=== PATIENT | female | born 1990 | race African-American/Black ===

== ENCOUNTER 2019-06-27 09:54 | Emergency (ER) | payer MEDICAID, OTHER ==
[~2019-06-27] VITALS: Ht 160 cm; Wt 54.5 kg
[~2019-06-27 09:54] MED LIST: DOXY100C PO; METR500 PO
[2019-06-27 10:20] LABS: BASOPHILS % (AUTO) 1.2 % (0.0-2.0); EOSINOPHILS % (AUTO) 3.4 % (1.0-6.0); HEMATOCRIT 42.5 % (36-46); HEMOGLOBIN 13.7 g/dL (12.0-16.0); LYMPHOCYTES # (AUTO) 1.5 K/uL (1.0-4.8); LYMPHOCYTES % (AUTO) 36.1 % (22.0-44.0); MEAN CORPUSCULAR HEMOGLOBIN 29.1 pg (26.0-34.0); MEAN CORPUSCULAR HGB CONC 32.3 G/dL (31.0-37.0); MEAN CORPUSCULAR VOLUME 90 fL (80-100); MONOCYTES # (AUTO) 0.3 K/uL (0.1-1.0); MONOCYTES % (AUTO) 6.7 % (2.0-9.0); NEUTROPHILS # (AUTO) 2.2 K/uL (1.8-7.7); NEUTROPHILS % (AUTO) 52.6 % (40.0-70.0); PLATELET COUNT (AUTO) 285 K/uL (150-450); RED BLOOD CELL COUNT(AUTO) 4.72 MIL/uL (4.00-5.20); RED CELL DISTRIBUTION WIDTH 12.8 % (11.5-14.5)
[2019-06-27 10:30] LABS: ANION GAP 6 mmol/L (8-16); CARBON DIOXIDE 29 mmol/L (22-29); CHLORIDE 103 mmol/L (98-107); GLOMERULAR FILTR. RATE CALC > 60 mL/min (>60); GLUCOSE,RANDOM 80 mg/dL (70-110); POTASSIUM 3.5 mmol/L (3.5-5.1); SODIUM SERUM 138 mmol/L (136-145); UREA NITROGEN, BLOOD 9 mg/dL (7-18)
[2019-06-27 10:42] LABS: ALANINE AMINOTRANSFERASE 12 U/L (12-78); ALKALINE PHOSPHATASE 62 U/L (46-116); ASPARTATE AMINOTRANSFERASE 13 U/L (15-37); BILIRUBIN,TOTAL 0.5 mg/dL (0.1-1.0); HCG,QUANTITATIVE < 1 mIU/mL (0-6); LIPASE 107 U/L (73-393); TOTAL PROTEIN, SERUM 7.1 g/dL (6.4-8.2)
[2019-06-27] MEDS ORDERED: SODIUM CHLORIDE 0.9% 1,000 ML IV ONE ×2 (11:45→13:30)
[2019-06-27] MEDS ORDERED: KETOROLAC TROMETHAMINE 30 MG/ML VIAL IVP ONE (11:45)
[2019-06-27] MEDS ORDERED: METOCLOPRAMIDE HCL 5 MG/ML 2 ML VIAL IVP ONE (11:45)
[2019-06-27 13:46] LABS: APPEARANCE,URINE CLEAR (CLEAR); BILIRUBIN,URINE NEGATIVE (NEGATIVE); GLUCOSE, URINE (UA) NEGATIVE (NEGATIVE); KETONES,URINE 15 mg/dL (NEGATIVE); LEUKOCYTE ESTERASE ,URINE SMALL (NEGATIVE); NITRATE,URINE NEGATIVE (NEGATIVE); OCCULT BLOOD,URINE NEGATIVE (NEGATIVE); PH,URINE 5.5 (5.0-8.0); PROTEIN,URINE NEGATIVE (NEGATIVE); UROBILINOGEN,URINE 0.2 mg/dL (<=1.0)
[2019-06-27 13:57] LABS: RBC,URINE None Seen /HPF (0-2)
[2019-06-27 13:58] LABS: BACTERIA,URINE Few /HPF (None Seen); SQUAMOUS EPITHELIAL CELL,UR Few /LPF (None Seen)
[2019-06-27 16:33] VITALS: BP 97/63
== END 2019-06-27 16:40 | disposition home or self-care (01) ==
LOC: EMS 09:55
DX: G43.909 Migraine, unspecified, not intractable, without status migrainosus (principal); R10.30 Lower abdominal pain, unspecified; R11.0 Nausea; R42 Dizziness and giddiness; F17.210 Nicotine dependence, cigarettes, uncomplicated; Z88.0 Allergy status to penicillin
CPT/HCPCS: 36415; 71045; 80053; 81001; 83690; 84702; 85025; 87086; 96361; 96374; 96375; 99284; 99406; J1885; J2765; J7030

== ENCOUNTER 2021-10-16 10:01 | Emergency (ER) | payer OTHER ==
[~2021-10-16] VITALS: Ht 157.5 cm; Wt 51.0 kg
[2021-10-16] MEDS ORDERED: LIDOCAINE/PF 1% 2 ML VIAL IM ONE (12:45)
[2021-10-16] MEDS ORDERED: CefTRIAXone SODIUM 1 GM/VIAL IM ONE (12:45)
[2021-10-16 15:48] VITALS: BP 126/69
[2021-10-16 16:08] LABS: APPEARANCE,URINE CLEAR (CLEAR); BILIRUBIN,URINE NEGATIVE (NEGATIVE); GLUCOSE, URINE (UA) NEGATIVE (NEGATIVE); KETONES,URINE >=80 mg/dL (NEGATIVE); LEUKOCYTE ESTERASE ,URINE NEGATIVE (NEGATIVE); NITRATE,URINE NEGATIVE (NEGATIVE); OCCULT BLOOD,URINE NEGATIVE (NEGATIVE); PROTEIN,URINE NEGATIVE (NEGATIVE)
[2021-10-16 16:20] LABS: RBC,URINE None Seen /HPF (0-2); TRANSITIONAL EPI CELLS,URINE Few /LPF (None Seen); WBC,URINE 0-2 /HPF (0-5)
[2021-10-16 16:21] LABS: BACTERIA,URINE None Seen /HPF (None Seen)
== END 2021-10-16 16:58 | disposition home or self-care (01) ==
LOC: EMS 10:01
DX: N72 Inflammatory disease of cervix uteri (principal); F12.90 Cannabis use, unspecified, uncomplicated; F17.210 Nicotine dependence, cigarettes, uncomplicated; Z88.0 Allergy status to penicillin
CPT/HCPCS: 36415; 76856; 81001; 84702; 87210; 87491; 87591; 96372; 99285; J0696; J3490

== ENCOUNTER 2022-07-31 07:49 | Emergency (ER) | payer OTHER ==
[~2022-07-31] VITALS: Ht 157.5 cm; Wt 59.1 kg
[2022-07-31 07:52] VITALS: BP 116/77
[2022-07-31] MEDS ORDERED: PREN-18 PO (07:55)
[2022-07-31 08:13] LABS: BASOPHILS % (AUTO) 0.8 % (0.0-2.0); EOSINOPHILS % (AUTO) 0.8 % (1.0-6.0); HEMATOCRIT 38.3 % (36-46); HEMOGLOBIN 12.4 g/dL (12.0-16.0); LYMPHOCYTES # (AUTO) 1.3 K/uL (1.0-4.8); LYMPHOCYTES % (AUTO) 20.8 % (22.0-44.0); MEAN CORPUSCULAR HGB CONC 32.3 G/dL (31.0-37.0); MEAN CORPUSCULAR VOLUME 90 fL (80-100); MONOCYTES # (AUTO) 0.5 K/uL (0.1-1.0); MONOCYTES % (AUTO) 7.6 % (2.0-9.0); NEUTROPHILS # (AUTO) 4.3 K/uL (1.8-7.7); PLATELET COUNT (AUTO) 284 K/uL (150-450); RED BLOOD CELL COUNT(AUTO) 4.26 MIL/uL (4.00-5.20); RED CELL DISTRIBUTION WIDTH 13.1 % (11.5-14.5)
== END 2022-07-31 08:46 | disposition left against medical advice (07) ==
LOC: EMS 07:51
DX: Z53.21 Procedure and treatment not carried out due to patient leaving prior to being seen by health care provider (principal)
CPT/HCPCS: 84702; 85025; 86901

== ENCOUNTER 2024-05-18 07:35 | Emergency (ER) | payer OTHER ==
[~2024-05-18] VITALS: Ht 170.2 cm; Wt 61.8 kg
[~2024-05-18 07:35] MED LIST changes: -DOXY100C PO; -METR500 PO; +PREN-18 PO
[2024-05-18 07:40] VITALS: BP 105/49; PULSE 76; RESP 18; TEMP 98.4
[2024-05-18 08:06] LABS: BASOPHILS % (AUTO) 0.8 % (0.0-2.0); EOSINOPHILS % (AUTO) 1.1 % (1.0-6.0); HEMATOCRIT 36.9 % (36-46); HEMOGLOBIN 12.3 g/dL (12.0-16.0); LYMPHOCYTES # (AUTO) 1.5 K/uL (1.0-4.8); MEAN CORPUSCULAR HEMOGLOBIN 29.9 pg (26.0-34.0); MEAN CORPUSCULAR HGB CONC 33.4 G/dL (31.0-37.0); MEAN CORPUSCULAR VOLUME 89 fL (80-100); MONOCYTES # (AUTO) 0.4 K/uL (0.1-1.0); MONOCYTES % (AUTO) 6.7 % (2.0-9.0); NEUTROPHILS # (AUTO) 3.9 K/uL (1.8-7.7); NEUTROPHILS % (AUTO) 65.4 % (40.0-70.0); PLATELET COUNT (AUTO) 301 K/uL (150-450); RED BLOOD CELL COUNT(AUTO) 4.12 MIL/uL (4.00-5.20); RED CELL DISTRIBUTION WIDTH 13.3 % (11.5-14.5)
[2024-05-18 08:16] LABS: ANION GAP 6 mmol/L (8-16); CARBON DIOXIDE 27 mmol/L (22-29); CHLORIDE 101 mmol/L (98-107); CREATININE 0.55 mg/dL (0.60-1.30); GLOMERULAR FILTR. RATE CALC > 60 mL/min (>60); GLUCOSE,RANDOM 86 mg/dL (70-110); POTASSIUM 3.9 mmol/L (3.5-5.1); SODIUM SERUM 134 mmol/L (136-145); UREA NITROGEN, BLOOD 7 mg/dL (7-18)
[2024-05-18 08:53] LABS: HCG,QUANTITATIVE 59326 mIU/mL (0-6); LIPASE 31 U/L (16-77)
[2024-05-18 11:00] LABS: APPEARANCE,URINE TURBID (CLEAR); BILIRUBIN,URINE NEGATIVE (NEGATIVE); COLOR,URINE LIGHT YELLOW (YELLOW); GLUCOSE, URINE (UA) NEGATIVE (NEGATIVE); KETONES,URINE NEGATIVE (NEGATIVE); LEUKOCYTE ESTERASE ,URINE NEGATIVE (NEGATIVE); NITRATE,URINE NEGATIVE (NEGATIVE); OCCULT BLOOD,URINE NEGATIVE (NEGATIVE); PROTEIN,URINE NEGATIVE (NEGATIVE); SPECIFIC GRAVITIY, URINE 1.015 (1.003-1.030); UROBILINOGEN,URINE <=1.0 mg/dL (<=1.0)
== END 2024-05-18 13:32 | disposition home or self-care (01) ==
LOC: EMS 07:35
DX: O26.891 Other specified pregnancy related conditions, first trimester (principal); Z3A.11 11 weeks gestation of pregnancy; O99.331 Smoking (tobacco) complicating pregnancy, first trimester; F17.210 Nicotine dependence, cigarettes, uncomplicated; F12.90 Cannabis use, unspecified, uncomplicated; Z88.0 Allergy status to penicillin
CPT/HCPCS: 76801; 80048; 81003; 83690; 84702; 85025; 99284

== ENCOUNTER → 2024-07-14 | Emergency (ER) | payer OTHER ==
[~2024-07-14] VITALS: Ht 157.5 cm; Wt 61.4 kg
[~2024-07-14] MED LIST changes: +HYDR30CR3 TP; +POLY119P3 PO; -PREN-18 PO
[2024-07-14 11:33] VITALS: TEMP 98
[2024-07-14 12:20] LABS: BASOPHILS % (AUTO) 0.6 % (0.0-2.0); EOSINOPHILS % (AUTO) 0.8 % (1.0-6.0); HEMATOCRIT 40.5 % (36-46); HEMOGLOBIN 13.1 g/dL (12.0-16.0); LYMPHOCYTES # (AUTO) 1.6 K/uL (1.0-4.8); LYMPHOCYTES % (AUTO) 21.6 % (22.0-44.0); MEAN CORPUSCULAR HEMOGLOBIN 29.5 pg (26.0-34.0); MEAN CORPUSCULAR HGB CONC 32.4 G/dL (31.0-37.0); MEAN CORPUSCULAR VOLUME 91 fL (80-100); MONOCYTES # (AUTO) 0.4 K/uL (0.1-1.0); MONOCYTES % (AUTO) 5.5 % (2.0-9.0); NEUTROPHILS # (AUTO) 5.3 K/uL (1.8-7.7); NEUTROPHILS % (AUTO) 71.5 % (40.0-70.0); PLATELET COUNT (AUTO) 290 K/uL (150-450); RED BLOOD CELL COUNT(AUTO) 4.45 MIL/uL (4.00-5.20); RED CELL DISTRIBUTION WIDTH 13.6 % (11.5-14.5); WHITE BLOOD COUNT (AUTO) 7.4 K/uL (4.5-11.0)
[2024-07-14] MEDS: ONDANSETRON HCL 4 MG/2 ML VIAL IVP ONE (14:03)
[2024-07-14] MEDS: SODIUM CHLORIDE 0.9% 1,000 ML IV ONE (14:03)
[2024-07-14] MEDS: ACETAMINOPHEN 500 MG TABLET PO ONE (14:03)
[2024-07-14] MEDS: SODIUM PHOSPHATE,MONO-DIBASIC 133 ML ENEMA PR ONE (14:24)
[2024-07-14] MEDS: MAGNESIUM CITRATE [LEMON] 300 ML ORAL SOLUTION PO ONE (14:24)
[2024-07-14 15:06] LABS: ANION GAP 10 mmol/L (8-16); CALCIUM, TOTAL 8.1 mg/dL (8.8-10.5); CARBON DIOXIDE 25 mmol/L (22-29); CHLORIDE 99 mmol/L (98-107); CREATININE 0.55 mg/dL (0.60-1.30); GLOMERULAR FILTR. RATE CALC > 60 mL/min (>60); GLUCOSE,RANDOM 69 mg/dL (70-110); POTASSIUM 3.8 mmol/L (3.5-5.1); SODIUM SERUM 134 mmol/L (136-145); UREA NITROGEN, BLOOD 5 mg/dL (7-18)
[2024-07-14 18:00] VITALS: BP 119/64; PULSE 80; RESP 18; O2SAT 98
== END | disposition still patient (30) ==
LOC: EMS 11:13
DX: O22.42 Hemorrhoids in pregnancy, second trimester (principal); O21.0 Mild hyperemesis gravidarum; O99.332 Smoking (tobacco) complicating pregnancy, second trimester; F17.210 Nicotine dependence, cigarettes, uncomplicated; Z3A.21 21 weeks gestation of pregnancy; F12.90 Cannabis use, unspecified, uncomplicated; Z88.0 Allergy status to penicillin
CPT/HCPCS: 99285; 96374; 76801; 96361; 80048; 84702; 85025; 36415; J2405; J7030

== ENCOUNTER 2025-10-12 08:34 | Emergency (ER) | payer OTHER ==
[~2025-10-12] VITALS: Ht 157.5 cm; Wt 56.8 kg
[2025-10-12 08:39] VITALS: BP 133/82; PULSE 60; RESP 18; TEMP 97.9; O2SAT 100
[2025-10-12] MEDS: IBUPROFEN 200 MG TABLET PO ONE (09:40)
[2025-10-12] MEDS: GuaiFENesin/D-METHORPHAN [SUGAR-FREE] 200-20MG/10 ML SYRUP UDCUP PO ONE (09:40)
[2025-10-12] MEDS: ACETAMINOPHEN/CODEINE 300-30 MG TABLET PO ONE (09:40)
[2025-10-12] MEDS ORDERED: IBUP-1554 PO (11:15)
[2025-10-12] MEDS ORDERED: ACET-2080 PO (11:15)
[2025-10-12] MEDS ORDERED: GUAIFDM PO (11:15)
== END 2025-10-12 11:25 | disposition home or self-care (01) ==
LOC: EMS 08:35
DX: S20.212A Contusion of left front wall of thorax, initial encounter (principal); R07.89 Other chest pain; J40 Bronchitis, not specified as acute or chronic; F17.210 Nicotine dependence, cigarettes, uncomplicated; F12.90 Cannabis use, unspecified, uncomplicated; Z88.0 Allergy status to penicillin; Z79.899 Other long term (current) drug therapy; X58.XXXA Exposure to other specified factors, initial encounter; Y93.89 Activity, other specified; Y92.89 Other specified places as the place of occurrence of the external cause; Y99.8 Other external cause status
CPT/HCPCS: 71101; 84703; 99284; Z7502; Z7610